=== PATIENT | female | born 1985 | race Asian ===

== ENCOUNTER 2016-07-09 22:39 | Emergency (ER) | payer OTHER ==
[2016-07-09 22:50] VITALS: BP 135/85; PULSE 75; RESP 20; TEMP 97.9; O2SAT 94
[2016-07-09] MEDS ORDERED: IBUPROFEN 200 MG TAB PO ONE (22:52)
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
== END 2016-07-09 23:46 | disposition home or self-care (01) ==
DX: S40.012A Contusion of left shoulder, initial encounter (principal); V49.50XA Passenger injured in collision with unspecified motor vehicles in traffic accident, initial encounter; Y92.410 Unspecified street and highway as the place of occurrence of the external cause; Y93.89 Activity, other specified

== ENCOUNTER 2017-08-18 13:02 | Emergency (ER) | payer MEDICAID, OTHER ==
[2017-08-18] MEDS ORDERED: LET GEL TOPICAL 1 EA SYR TP ONE ×2 (13:36→13:37)
[2017-08-18] MEDS ORDERED: AMOXICILLIN/CLAVULANATE POT 875/125 MG TAB PO ONE (14:36)
[2017-08-18] MEDS ORDERED: TDAP ADULT 0.5 ML INJ (BOOSTRIX) IM ONE (14:36)
--- NOTE | 2017-08-18 14:37 | EDPHY ---
General Time Seen by Provider: 08/18/17 13:54 Narrative: CHIEF COMPLAINT: Toe injury, laceration HISTORY OF PRESENT ILLNESS: Patient complains of right toe pain after injury last night. This happened around 4:30 p.m.. She was walking in her home when she "hit my toe on my refrigerator." Sudden onset of pain in the right little toe with a laceration just below. No numbness or tingling. No radiating pain. Minimal at rest. 6/ 10 when she bears weight or ambulates. She presents today as it has not improved. She has iced it. No other associated complaints or modifying factors. REVIEW OF SYSTEMS: Ten systems reviewed and are negative unless otherwise noted in the HPI PCP: Dr. Lucia Newton SPECIALISTS: None PAST MEDICAL HISTORY: None PAST SURGICAL HISTORY: No surgical history SOCIAL HISTORY: Never smoker. Lives independently with her spouse and child FAMILY HISTORY: Noncontributory EXAMINATION General Appearance: Alert, no distress Head: normocephalic, atraumatic Cardiovascular: Regular rate. Brisk cap refill on the affected right toe. Good signs of perfusion to the foot with symmetric DP and PT pulses. Neurological: A&O, nonfocal, antalgic but steady gait. Strength is symmetric in the great toes Skin: Warm and dry, no rash. 1 cm laceration just below the right 5th toe at the MTP joint. No distraction of the wound border at rest. No pulsatile bleeding. No foreign body. Extremities: Tenderness of the right 5th toe over the proximal phalanx. There is laceration below this. Range of motion of the ankles intact. There is no pain in the midfoot. Neurovascular intact Psychiatric: Mood and affect normal MDM: 2:35 p.m. Blunt trauma to the right toe with superficial laceration to the plantar surface the base of the MTP joint of the 5th toe. Normal x-ray. This is a delayed presentation by 15 hr. This is a minimal laceration, less than 1 cm. I do not feel she would benefit from laceration closure primarily at this time. We will irrigate the wound, dress the wound and treat her with antibiotic prophylaxis. She will be placed in a postoperative shoe. She is comfortable this plan and discharged home stable condition. ED precautions for worsening pain, numbness, tingling, weakness, redness, warmth or fever. SUPERVISION: This patient was independently evaluated without direct involvement of or examination by the attending physician. - Diagnostics Imaging Results: Imaging Impressions Toe X-Ray 08/18/17 13:43 Impression: Negative for fracture or radiopaque foreign body. - History Smoking Status: Never smoked - Objective Vital Signs: Initial Vital Signs Temperature (C) 98.4 F 08/18/17 13:09 Heart Rate 66 08/18/17 13:09 Respiratory Rate 16 08/18/17 13:09 Blood Pressure 113/74 08/18/17 13:09 O2 Sat (%) 98 08/18/17 13:09 O2 Delivery Mode Room Air Allergies/Adverse Reactions: calcium Allergy (Verified 08/18/17 13:09) iron Allergy (Verified 08/18/17 13:09) Home Medications: Medication Instructions Recorded Amoxicillin/Clavulanate Pot 875 mg PO BID #14 tab 08/18/17 [Augmentin 875 MG TAB (*)] Medications Given: Discontinued Medications Amoxicillin/Clavulanate Potassium (Augmentin 875mg) 875 mg PO EDNOW ONE PRN Reason: Protocol Stop: 08/18/17 14:37 Last Admin: 08/18/17 14:53 Dose: 875 mg Diphtheria/Tetanus/Acell Pertussis (Boostrix) 0.5 ml IM .ONCE ONE Stop: 08/18/17 14:37 Last Admin: 08/18/17 14:54 Dose: 0.5 ml Tetracaine/Epinephrine/Lidocaine (Let Gel Topical) 1 ea TP EDNOW ONE Stop: 08/18/17 13:38 Last Admin: 08/18/17 13:40 Dose: 1 ea Departure - Departure Disposition: Home, Routine, Self-Care Clinical Impression: Contusion of toe, right Qualifiers: Encounter type: initial encounter Toe: lesser toe Damage to nail status: without damage Qualified Code(s): S90.121A - Contusion of right lesser toe(s) without damage to nail, initial encounter Toe laceration Qualifiers: Encounter type: initial encounter Toe: lesser toe Damage to nail status: without damage Foreign body presence: without foreign body Laterality: right Qualified Code(s): S91.114A - Laceration without foreign body of right lesser toe(s) without damage to nail, initial encounter Condition: Good Instructions: Laceration Without Closure (ED), Crush Injury (ED) Additional Instructions: 1. Antibiotics as prescribed to completion 2. Ice and elevation often 3. Follow up with primary care physician and Orthopedics for definitive care of the toe injury 4. Return here in 72 hr for re-evaluation of the wound and for possible consideration of delayed closure. Your laceration may not require suture repair at that time 5. Ibuprofen 400 mg every 6-8 hours as needed for pain Referrals: Lucia Newton PA [Primary Care Provider] - As per Instructions Stand Alone Forms: Work Excuse Prescriptions: Amoxicillin/Clavulanate Pot [Augmentin 875 MG TAB (*)] 875 mg PO BID #14 tab
[2017-08-18 15:11] VITALS: BP 110/70
== END 2017-08-18 15:08 | disposition home or self-care (01) ==
DX: S91.114A Laceration without foreign body of right lesser toe(s) without damage to nail, initial encounter (principal); Z23 Encounter for immunization; W22.8XXA Striking against or struck by other objects, initial encounter; Y92.009 Unspecified place in unspecified non-institutional (private) residence as the place of occurrence of the external cause; Y99.8 Other external cause status; Y93.01 Activity, walking, marching and hiking

== ENCOUNTER → 2017-08-22 | Outpatient (CLI) | payer MEDICAID | LOC: FLAB 10:38 → FIMAGING 10:38 → EDSTATUS 11:02 | PROVIDERS: ATTEND Physician Assistant | DX: O26.899 Other specified pregnancy related conditions, unspecified trimester (principal) ==

== ENCOUNTER 2017-08-25 18:07 | Emergency (ER) | payer MEDICAID ==
[2017-08-25] MEDS ORDERED: NS 1,000 ML IV ONE (18:23)
--- NOTE | 2017-08-25 18:26 | EDPHY ---
HPI/HX/ROS/PE/MDM Narrative: CHIEF COMPLAINT: Vaginal bleeding for three days HISTORY OF PRESENT ILLNESS: This patient is a healthy 32 year old female who is six weeks complaining of four-five days of vaginal bleeding. She was seen at [facility] on 08/22/17, for vaginal bleeding and had a positive test. Ultrasound was performed at that time the patient is scheduled for followup on . Today, she noted larger clots present when she goes to the restroom. She endorses dizziness and mild pain in her abdomen. She not felt febrile. She denies any prior miscarriage or ectopic pregnancies. No known history of infection. She has not been taking control. No fever, chills, chest pain , shortness of breath, palpitations, vomiting, diarrhea, urinary complaints, headache. Patient's records were reviewed. 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 There was a small subchorionic hemorrhage noted that time and the patient had only a small rim of endometrium around the yolk sac. REVIEW OF SYSTEMS: Aside from elements discussed in the HPI, a comprehensive 10-point review of systems was reviewed and is negative. PAST MEDICAL HISTORY: . Patient is primarily Tuvaluan speaking. SOCIAL HISTORY: . and daughter at bedside. Employed. Lives in [place]. VITAL SIGNS: Reviewed by me GENERAL: Well-developed, well-nourished, resting comfortably in no respiratory distress. HEENT: Atraumatic. Eyes: No icterus, no injection. Mouth: moist mucous membranes. No erythema or lesions. Neck: supple with no adenopathy. LUNGS: Clear to auscultation bilaterally, no wheezes, rhonchi or rales. CARDIAC: Regular rate and rhythm, no rubs, murmurs or gallops. ABDOMEN: RLQ and suprapubic discomfort. Soft, nondistended, bowel sounds normal. Scant vaginal bleeding at this time. BACK: No CVA tenderness. EXTREMITIES: No trauma. No edema. Range of motion is normal throughout. NEURO: Alert and oriented, grossly nonfocal. SKIN: Warm and dry, no rash. PSYCHIATRIC: Normal mentation, no agitation. Portions of this note were transcribed by a medical unit secretary. I personally performed a history, physical exam, medical decision making, and confirmed accuracy of information the transcribed note. ED Course: 32 y/o female presents with five day history of vaginal bleeding. Patient has RLQ and suprapubic tenderness on exam. Reviewed prior medical records including recent obstetrics ultrasound 08/22/17. Result: Intrauterine gestational sac in the right horn of the uterus near the fundus region corresponding to estimated gestational age of 5 weeks, 6 days with a yolk sac identified. No pole noted at this time. IV established. Plan for labs including CBC, chemistries, BHCG, ABO/Rh type, UA. Plan for repeat obstetrics ultrasound. Plan to administer 1L IV NS. 19:[address] Quick, radiologist. 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 pole present. HR 114. Only 5mm myometrium around . 20:30 Relayed results to patient via [employer] lube attendant on the phone. Discussed that the patient is at higher risk of having a miscarriage due to her bicornate uterus. Discussed the importance of followup throughout the and return to the emergency department for increased bleeding or pain. Also discussed possibility that this may be interstitial as there is such only small amount of myometrium seen surrounding the . Attempted to reach on-call physician for [facility]. No answer after several tries. Plan to consult with MASON FOREMAN/SUPERINTENDANT. 20:[address] Cunningham, [employer] FOREMAN/SUPERINTENDANT. Discussed the ultrasound findings at length. Discussed the fact that the patient was no longer having vaginal bleeding. Dr. Cunningham will see the patient tomorrow without fail in her office. Consult patient and again regarding importance of follow-up. They report that they understand and will follow up tomorrow. Discussed reasons to return to the emergency department including increasing pain, increasing vaginal bleeding, lightheadedness, dizziness, fainting, fever, or other concerns. Per the patient and the , they were not informed of a prior bicornate uterus during her prior . MDM: Differential diagnosis of the patient's vaginal bleeding includes dysfunctional uterine bleeding, threatened miscarriage, spontaneous miscarriage, in the endometrium, ectopic ,ovarian cysts, uterine fibroids, uterine cancer, cervical cancer, and infection. - Data Points Imaging Results: US: Impression: 1. Single viable intrauterine gestation, with size consistent with LMP dates. 2. FHR = 114 BPM. 3. No subchorionic hemorrhage. 4. Bicornuate uterus, with a gestational sac in the right endometrial canal near the fundus, with only 4.4 mm of surrounding myometrium on the margin and, therefore, a cornual/ interstitial ectopic cannot be entirely excluded. Close clinical follow up is recommended. 5. Recommend follow-up anatomy scan between 19 and 20 weeks gestation. 6. Consider highway engineer consult. Findings and recommendations discussed with Emergency Department physician, Anita Toribio M.D., at 1953 hours, on August 25, 2017. Final report concurs with initial preliminary interpretation. Dictated By: Herbert Quick Imaging: Discussed imaging studies w/ teacher physically impaired Radiologist Laboratory Results: Laboratory Results 08/25/17 18:40 08/25/17 18:40 Medications Given: Discontinued Medications Sodium Chloride (Ns) 1,000 mls @ 0 mls/hr IV ONCE ONE; Wide Open PRN Reason: Protocol Stop: 08/25/17 18:24 Last Admin: 08/25/17 18:42 Dose: 1,000 mls General Time Seen by Provider: 08/25/17 18:22 Initial Vital Signs: Initial Vital Signs Temperature (C) 37.2 C 08/25/17 18:15 Heart Rate 78 08/25/17 18:15 Respiratory Rate 16 08/25/17 18:15 Blood Pressure 115/66 08/25/17 18:15 O2 Sat (%) 98 08/25/17 18:15 O2 Delivery Mode Room Air Allergies/Adverse Reactions: calcium Allergy (Verified 08/25/17 18:14) iron Allergy (Verified 08/25/17 18:14) Departure - Departure Disposition: Home, Routine, Self-Care Clinical Impression: Threatened miscarriage in early Condition: Good Instructions: Threatened Miscarriage (ED) Additional Instructions: 1. Follow up with Dr. Cunningham's office tomorrow without fail. Call first thing in the morning for an appointment. Be sure the office knows that the emergency physician spoke to Dr. Cunningham and they want you to be seen tomorrow. 2. Return to the emergency department immediately for fainting, severe pain, vomiting, fever, or other worsening of condition. Referrals: MEDINA CARBAJAL [Primary Care Provider] - As per Instructions Luanne Cunningham DO [Doctor of Osteopathy] - As per Instructions Report Scribed for: Anita Toribio Report Scribed by: Jewell Oneil Date of Report: 08/25/17 Time of Report: 18:23
[2017-08-25 18:56] LABS: PLATELET COUNT 169 10^3/uL (150-400)
[2017-08-25 21:29] VITALS: BP 99/77
== END 2017-08-25 22:02 | disposition home or self-care (01) ==
DX: O20.0 Threatened abortion (principal); E86.9 Volume depletion, unspecified; Z3A.01 Less than 8 weeks gestation of pregnancy

== ENCOUNTER 2018-02-24 04:33 | Observation (INO) | payer MEDICAID ==
[2018-02-24] MEDS ORDERED: LR 500 ML IV ONE (05:30)
[2018-02-24 05:51] LABS: PLATELET COUNT 170 10^3/uL (150-400)
[2018-02-24] MEDS ORDERED: LR 1,000 ML IV SCH (06:00)
[2018-02-24] MEDS: NIFEdipine 10 MG CAP PO PRN ×3 (07:24→11:54)
[2018-02-24] MEDS ORDERED: BETAMETHASONE IM SYRINGE IM ONE (07:30)
[2018-02-24] MEDS: fentaNYL 100 MCG/2 ML INJ IVP PRN ×2 (07:48→13:20)
--- NOTE | 2018-02-24 13:36 | GHP ---
DATE OF ADMISSION: 02/24/2018 ADMITTING DIAGNOSES: 1. Intrauterine at 32 weeks, 3 days. 2. Abdominal pain. 3. Nausea and vomiting. 4. Dysuria. HISTORY OF PRESENT ILLNESS: The patient is a 32-year-old, 2, para 1-0-0 -1 at 32 weeks and 3 days with an estimated due date of 04/18/2017 by last menstrual period, 07/12/2017, and consistent with ultrasound done at 6 weeks. The patient presents with complaints of lower abdominal pain, specifically on the right side starting at midnight, as well as back pain. The patient's admitted to having intercourse around midnight. The pain is associated with nausea and vomiting. The patient states the pain in her abdomen is a 10/10 , and does feel like labor pains. She also notes pain, burning upon urination. Denies any fevers or chills or history of kidney infection. Patient states good movement noted. Notes a brownish, red mucousy discharge. The patient has good care at [facility] and presented in her first trimester at 7 weeks. is complicated by 1st trimester bleeding, as well as bleeding at 15 weeks. Anatomy scan was normal, posterior placenta with no previa noted and estimated weight 69 percentile. The patient develop anemia of , and is tolerating iron. The patient received the flu shot during this . GBS status is unknown at this time. PAST OB HISTORY: In March 2015, she had a viable female weighing 8 pounds born via vacuum-assisted vaginal delivery at 40 weeks. The patient was induced and did have an epidural. PAST MILK ROUTE DELIVERER HISTORY: Age of menarche 13. Cycles are every 28 days for 4 days. LMP 06/26/2017. Patient denies a history of abnormal Pap smears or any exposure to STDs. ER reported bicornuate uterus, granulator operator in our office states more likely arcuate versus septate. CURRENT MEDICATIONS: Include vitamins, iron. ALLERGIES: No known drug allergies. PAST MEDICAL HISTORY: Frequent headaches. SURGICAL HISTORY: Patient denies. PAST FAMILY HISTORY: Father and mother, hypertension. Mother, hypothyroidism. SOCIAL HISTORY: The patient is and lives with her and their daughter. She denies any alcohol, tobacco, or illicit drug use currently. REVIEW OF SYSTEMS: Ten point review of systems negative. Pertinent positives noted in HPI. LABS: Today: White count 10.66. H and H, 11.7 and 35, platelets 170. BMP revealed creatinine 0.5, AST/ALT 17/27. UA showed 2+ blood, 3+ leuk esterase, 1 + bacteria, 50 to 182 white blood cells, and was sent for culture. LABS: The patient is Rh positive. Antibody negative. HIV negative. Hepatitis B surface antigen negative. RPR nonreactive. Rubella immune. Innatal screen negative. Single AFP negative. One-hour Glucola 94. H and H 3rd trimester 11.5, 35.1. PHYSICAL EXAMINATION: VITAL SIGNS: Stable. The patient is afebrile with a temperature of 37.2, heart rate 84, respirations 18, blood pressure 88/54. GENERAL: The patient is a well-nourished, well-developed female. Alert and oriented x3 in mild distress secondary to abdominal pain. NEURO: Grossly intact. SKIN: Warm and dry without rash. CARDIOVASCULAR: Regular rate and rhythm. LUNGS: Clear to auscultation bilaterally. ABDOMEN: Gravid, soft. There was some mild to moderate tenderness in the right lower quadrant. Negative CVA tenderness. PELVIC EXAM: On admission was noted to be 1 cm, 50% effaced, -2 station with brownish mucousy discharge. On repeat exam 4 hours later, there was no cervical change noted. EXTREMITIES: Normal to inspection without calf tenderness or edema. heart tones are Category 1 tracing, with a baseline 130 beats per minute. Positive accelerations. No decelerations. Moderate variability. On toco, initially she was bowen about every 7 to 10 minutes and then after IV fluid bolus, they spaced out. No longer picking them up on the monitor. Nurses palpate very mild contractions. ASSESSMENT/PLAN: Patient is a 32-year-old 2, para 1-0-0-1 at 32 weeks and 3/7 weeks with abdominal pain, nausea, vomiting, and dysuria. PLAN: 1. Admit to Labor and Delivery for observation. 2. Rule out labor: fibronectin was not obtained secondary to the bloody mucousy discharge and recent intercourse. Ultrasound was done that revealed a cervical length of 2.8 cm transvaginally with funneling. The patient was given a dose of steroids at 0715 this morning. Will repeat the 2nd dose of steroids for lung maturity in the morning 02/25. Will give Procardia initial dose 20 mg and then 10 mg q6 for contractions, so that steroids are able to be given 24 hours apart. Will continue to closely observe. 3. Labs all normal, except for UA which was sent for culture. 4. heart tones category I tracing. /[id number]/MODL MTDD
[2018-02-24] MEDS: NIFEdipine 10 MG CAP PO SCH ×2 (16:20→18:02)
[2018-02-24] MEDS ORDERED: ONDANSETRON DISINTEGRATING 4 MG TAB PO PRN (21:03)
[2018-02-25] MEDS ORDERED: BETAMETHASONE IM SYRINGE IM ONE (07:30)
--- NOTE | 2018-02-25 12:04 | OBPROG ---
Labor Progress Note Assessment/Plan: Assessment: IUP 32 37 weeks abdominal pain resolved status reassuring urine culture pending s/p betamethasone x 2 for contractions and shorter cervix 02/25/18 12:01 Subjective/Intrapartum Course: 02/25/18 12:02 patient is doing well. abdominal pain and cramping has resolved. good movement. denies loss of fluid or vaginal bleeding. denies headache and changes in vision. denies nausea or vomiting. ready to go home. next appointment scheduled a week from friday. reviewed precautions and kick counts. ready to go home. Objective: 02/24/18 05:30 02/24/18 05:30 Total Bilirubin < 0.1 mg/dL (0.1-1.4) L 02/24/18 05:30 AST 17 IU/L (14-46) 02/24/18 05:30 ALT 27 IU/L (9-52) 02/24/18 05:30 - Physical Exam General Appearance: WD/WN, alert, no apparent distress Respiratory: chest non-tender, lungs clear, respiratory distress Cardiac/Chest: normal peripheral pulses, regular rate, rhythm Abdomen: normal bowel sounds, non-tender, other (gravid non tender) Extremities: normal range of motion, non-tender, normal inspection, normal capillary refill Skin: normal color, warm/dry Neuro/Psych: no motor/sensory deficits, alert, normal mood/affect, oriented x 3 Oxytocin Orders Assessment - Pre-Induction/Augmentation Assessment Gestational Age: 32 week(s) and 3 day(s) ICD10 Worksheet Patient Problems: Problems Problem Status Onset Subchorionic hemorrhage Acute Vaginal bleeding before 22 weeks gestation Acute
== END 2018-02-25 13:05 | disposition home or self-care (01) ==
LOC: FLD 04:33
PROVIDERS: ADMIT Obstetrics & Gynecology; ATTEND Obstetrics & Gynecology
DX: Z03.79 Encounter for other suspected maternal and fetal conditions ruled out (principal); R10.30 Lower abdominal pain, unspecified; R11.2 Nausea with vomiting, unspecified; R30.0 Dysuria; Z3A.32 32 weeks gestation of pregnancy
CPT/HCPCS: 59025; 76815; G0378; J0702; J3010

== ENCOUNTER 2018-02-28 00:50 | Inpatient (IN) | payer MEDICAID ==
[2018-02-28] MEDS ORDERED: AMMONIA AROMATIC 1 EACH AMP IH ONE (01:23)
[2018-02-28] MEDS ORDERED: OLIVE OIL 118 ML BTL ONE (01:23)
[2018-02-28] MEDS ORDERED: LIDOCAINE 1% 300 MG/30 ML SDV ONE (01:23)
[2018-02-28] MEDS ORDERED: MISOPROSTOL 200 MCG TAB ONE (01:23)
[2018-02-28] MEDS ORDERED: OXYTOCIN 10 UNIT/ML VIAL ONE (01:23)
[2018-02-28] MEDS ORDERED: TERBUTALINE SULFATE 1 MG/ML VIAL ONE (01:23)
[2018-02-28] MEDS ORDERED: AZITHROMYCIN 250 MG TAB PO ONE (01:24)
[2018-02-28] MEDS ORDERED: LR 1,000 ML IV SCH (01:30)
[2018-02-28] MEDS ORDERED: ceFAZolin 2 GM/DEXTROSE 100 ML IV ONE (02:06)
[2018-02-28] MEDS ORDERED: AZITHROMYCIN IV 500 MG in NS 250 ML IV ONE (02:07)
[2018-02-28 02:09] LABS: PLATELET COUNT 178 10^3/uL (150-400)
[2018-02-28] MEDS ORDERED: PROPOFOL/EMULSION 500 MG/50 ML BOTTLE IV ONE (02:22)
[2018-02-28] MEDS ORDERED: ONDANSETRON 4 MG/2 ML VIAL ONE (02:23)
[2018-02-28] MEDS ORDERED: fentaNYL 250 MCG/5 ML INJ ONE (02:27)
[2018-02-28] MEDS ORDERED: DEXAMETHASONE 4 MG/ML VIAL IVP PRN (03:02)
[2018-02-28] MEDS ORDERED: ALBUTEROL 3 ML DEYVIAL IH PRN (03:02)
[2018-02-28] MEDS ORDERED: NALOXONE HCL 0.4 MG/ML INJ IVP PRN ×2 (03:02→04:35)
[2018-02-28] MEDS ORDERED: LR 500 ML IV PRN (03:02)
[2018-02-28] MEDS ORDERED: MEPERIDINE 25 MG/0.5 ML AMP IVP PRN (03:02)
[2018-02-28] MEDS ORDERED: PROMETHAZINE HCL 25 MG/ML INJ IVP PRN (03:02)
[2018-02-28] MEDS ORDERED: fentaNYL 100 MCG/2 ML INJ IVP PRN (03:02)
--- NOTE | 2018-02-28 03:08 | PDANEPAE ---
ANE History of Present Illness 32 year old woman for emergency for prolapsed cord. ANE Past Medical History - Cardiovascular History Hx Hypertension: No Hx Arrhythmias: No Hx Chest Pain: No Hx Coronary Artery / Peripheral Vascular Disease: No Hx CHF / Valvular Disease: No Hx Palpitations: No - Pulmonary History Hx COPD: No Hx Recent Upper Respiratory Infection: No Hx Oxygen in Use at Home: No Hx Sleep Apnea: No - Endocrine History Hx Diabetes: No - Chronic Pain History Chronic Pain: No ANE Review of Systems Review of systems is: negative Review of Systems: ANE Patient History - Allergies Allergies/Adverse Reactions: calcium Allergy (Mild, Verified 10/26/17 10:25) GI iron Allergy (Mild, Verified 10/26/17 10:25) GI - Home Medications Home Medications: NK [No Known Home Meds] 10/26/17 [Last Taken Unknown] - Smoking Hx Smoking Status: Never smoked ANE Labs/Vital Signs - Labs Result Diagrams: 02/28/18 01:50 ANE Physical Exam - Airway Neck exam: FROM Mallampati Score: Class 2 Mouth exam: normal dental/mouth exam - Pulmonary Pulmonary: no respiratory distress - Cardiovascular Cardiovascular: regular rate and rhythym - ASA Status ASA Status: I, E ANE Anesthesia Plan Anesthesia Plan: general endotracheal anesthesia
[2018-02-28] MEDS ORDERED: fentaNYL 100 MCG/2 ML INJ ONE (03:58)
--- NOTE | 2018-02-28 04:00 | POSTANESTH ---
Post Anesthetic Evaluation Cardiovascular Status: Normal, Stable Respiratory Status: Normal, Stable Level of Consciousness/Mental Status: Can Participate in Eval Pain Control: Adequate, Prn Tx Ordered Nausea/Vomiting Control: Adequate, Prn Tx Ordered Complications Possibly Related to Anesthesia: None Noted
[2018-02-28] MEDS ORDERED: BISACODYL 10 MG SUPP PR PRN ×2 (04:07→04:37)
[2018-02-28] MEDS ORDERED: POLYETHYLENE GLYCOL 3350 17 GM PKT PO PRN ×2 (04:07→04:37)
[2018-02-28] MEDS ORDERED: LACTULOSE 20 GM/30 ML UDCUP PO PRN ×2 (04:07→04:37)
[2018-02-28] MEDS ORDERED: MAGNESIUM HYDROXIDE 30 ML UDCUP PO PRN ×2 (04:07→04:37)
--- NOTE | 2018-02-28 04:13 | OBDEL ---
Info Type: Primary Presentation at Delivery: Transverse Lie L&D Analgesia/Anesthesia Type: General GBS+: No (unknown) Intrapartum Medications: Discontinued Medications Generic Name Dose Route Start Last Admin Trade Name Ramanaq PRN Reason Stop Dose Admin Azithromycin 1,000 mg 02/28/18 01:24 02/28/18 03:12 Zithromax PO 02/28/18 01:25 Not Given ONCE ONE Protocol Fentanyl 25 - 100 mcg 02/28/18 03:02 02/28/18 04:00 Sublimaze IVP 02/28/18 04:02 50 mcg Q5M PRN Administration PACU, IMMEDIATE Pain control Azithromycin 500 mg/ Sodium 255 mls @ 255 mls/hr 02/28/18 02:07 02/28/18 02: 16 Chloride IV 02/28/18 03:06 255 mls ONCE ONE Administration Protocol Cefazolin Sodium/Dextrose 100 mls @ 200 mls/hr 02/28/18 02:06 02/28/18 02:15 Ancef IV 02/28/18 02:35 100 mls ONCALL ONE Administration Protocol Vaginal Delivery - Labor and Delivery Onset of Contractions Date: 02/27/18 Onset of Contractions Time: 20:00 Cord Gases: Cord Gases Cord Blood PCO2 69.6 mmHg (37-60) H 02/28/18 02:50 Cord Base Excess -5.0 mEq/L (-13.6--3.2) 02/28/18 02:50 Cord ABG pH 7.18 (7.10-7.37) 02/28/18 02:50 Cord VBG pH 7.29 (7.20-7.42) 02/28/18 02:50 Operative Report - Delivery Pre-op Diagnoses: IUP at 33 wks, PPROM, transverse lie, prolapsed cord. Post-op Diagnoses: same History of Prior Section: No Number of Prior Sections: 0 Nulliparous Prior to Delivery: No Indications for Prior Section: Other (Specify) (n/a) Indications for Current Section: Cord Prolapse, Other (Specify) (PPROM, ) Procedure: Emergent, Low Transverse, Other (Specify) Surgeon: Debi Saleem Global Project Manager: Brie Gooden Anesthesiologist: Elenita Garcia Findings: cord prolapse and Tamiko Pepper RN , after it was first identified - stayed with hands in vagina protecting the cord from compression until delivery. Uterus with slightly irreg fundus with question of arcuate shape. o/w normal ovaries/tubes. delivered from transverse position and head rotated from left lower quadrant to midline, then fundal pressure applied and head delivered without trauma. No nuchal cord but wad of cord delivery after baby. normal double layer closure. no evidence of RPOCs, good uterine tone right after delivery. 1 min of delayed cord clamp, clear fluid upon entry in amniotic cavity Specimen(s)/Path: Placenta IV Fluid (ml): 2,600 EBL: 1000 Cord Gases: Cord Gases Cord Blood PCO2 69.6 mmHg (37-60) H 02/28/18 02:50 Cord Base Excess -5.0 mEq/L (-13.6--3.2) 02/28/18 02:50 Cord ABG pH 7.18 (7.10-7.37) 02/28/18 02:50 Cord VBG pH 7.29 (7.20-7.42) 02/28/18 02:50 Data LEENA: 04/18/18 Gestational Age: 33 week(s) and 0 day(s) Nation Delivery Date: 02/28/18 Delivery Time: 02:50 Sex of Infant: Male Score (1 Min): 8 Score (5 Min): 9 ICD10 Worksheet Patient Problems: Problems Problem Status Onset S/P primary low transverse Acute Umbilical cord prolapse Acute premature rupture of membranes Acute
[2018-02-28] MEDS ORDERED: OXYTOCIN/RINGERS LACTATE 1,000 ML IV SCH (04:30)
[2018-02-28] MEDS: KETOROLAC 30 MG/1 ML SDV IVP SCH ×4 (04:32→22:23)
--- NOTE | 2018-02-28 04:33 | POSTOPPROG ---
Post Op Note Date of Operation: 02/28/18 Surgeon: Debi Saleem Waste Examiner: Brie Gooden SA Anesthesiologist: Elenita Garcia MD Anesthesia: GET(General Endotracheal) Pre-op Diagnosis: IUP at 33 wks, PPROM, prolapsed cord Post-op Diagnosis: same Indication: PPROM, ctxns, transverse lie, prolapsed cord Procedure: primary LTCS Findings: nl uterus with irreg fundus /arcuate, nl ov/tubes, clear fluid Inf/Abcess present in the surg proc area at time of surgery?: No Depth: Organ Space EBL: 500-1000 Total fluids administered: 2600 Specimen(s): Placenta
[2018-02-28] MEDS ORDERED: morphINE PCA 30 MG/30 ML PCA IV PRN (04:35)
[2018-02-28] MEDS ORDERED: AMPICILLIN SODIUM 2 GM in NS 100 ML IV SCH (06:00)
[2018-02-28] MEDS ORDERED: SENNOSIDES/DOCUSATE SODIUM TAB PO SCH (09:00)
--- NOTE | 2018-02-28 12:00 | OBPP ---
Progress Note Assessment/Plan: Assessment: s/p stat PCS under GA secondary to PPROM and cord prolapse at 33 weeks POD # 0.5 - pt is stable Plan: Continue routine post-op care Will d/c PORTFOLIO STRATEGIST and start oral meds as ordered Advance diet as giancarlo Encourage ambulation UO is good Pt is afebrile H/H in am 1202/28/18 12:03 Subjective/ Course: 02/28/18 12:00 Pt seen and examined. Pain is controlled at this time- s/p Toradol and on Morphine PORTFOLIO STRATEGIST. Pt no longer having nausea. Pt is not OOB yet, giancarlo clears, carroll in place, no flatus. Denies any f/c/v/CP or SOB. Mod lochia. Objective: 02/28/18 01:50 Patient ABO/Rh B POSITIVE 02/28/18 01:50 Temp Pulse Resp BP Pulse Ox 36.3 C 79 26 H 112/68 99 02/28/18 05:30 02/28/18 01:36 02/28/18 05:30 02/28/18 05:30 02/28/18 05:30 Uterine Position/Fundal Height: Umbilicus -1 Uterine Tone: Firm Physical Exam - Physical Exam General Appearance: WD/WN, alert, no apparent distress Respiratory: lungs clear, normal breath sounds Cardiac/Chest: regular rate, rhythm Abdomen: normal bowel sounds, soft, incision (C/D/I with dressing-no shadowing) , dressing (C/D/I), other (appropriate tenderness) Extremities: non-tender, normal inspection (with SCDs in place) Skin: normal color, warm/dry Neuro/Psych: alert, normal mood/affect, oriented x 3
[2018-02-28] MEDS: ACETAMINOPHEN 325 MG TAB PO SCH ×4 (13:36→22:31)
[2018-02-28] MEDS: oxyCODONE IR 5 MG TAB PO PRN ×2 (13:54→18:28)
--- NOTE | 2018-02-28 14:03 | GHP ---
DATE OF ADMISSION: 02/28/2018 HISTORY UPON ADMISSION: The patient is a 32-year-old, G2, P1, at 33 weeks' gestation with an estimated due date of 04/18/2017, who presents early on the morning of 02/28 with complaints of abdominal pains. The patient reports the pains were throughout the day on the , however, increasing in frequency after 8 p.m. on the night of 02/27. The patient was coming to Labor and Delivery for evaluation and reports increased leakage of fluid approximately 0045 when she arrived at the hospital. The patient was admitted on to Labor and Delivery after 1 a.m. and was found to be grossly ruptured with clear fluid. The patient was describing abdominal pains and reporting significant discomfort. However, the patient did not visually look uncomfortable consistent with contractions. The patient had previously been admitted to the hospital on 02/24, at which time she was having contractions, but no signs of labor progress. She had been given betamethasone on the and . The patient was reporting good movement, however, had been breech on an ultrasound on the . An ultrasound was performed on Labor and Delivery to determine the position. There was a moderate amount of amniotic fluid. The baby was in a transverse lie with the head in the left lower quadrant and what appeared to be arm presenting in the pelvis. The heart tones had been showing evidence of cord compression with variable decelerations, approximately every 4-7 minutes. A Betadine sterile vaginal exam was performed , and there was evidence of prolapsed cord in the vagina. There was no obvious presenting part through the cervix other than cord. At the time I discovered the prolapsed cord, I remained giving the cord support and elevating the lower uterine segment. RN, Selene Pepper, put on a sterile glove, and we switched places for her to support the prolapse cord while preparations were being made for section. After the prolapsed cord was identified, there was improvement in the variable decelerations with the pelvic support, but preparations were made quickly to proceed to the operating room for section. With the language barrier for the patient, it was difficult for her to understand the reasoning for , and the patient and her were reassured about the baby's status, but need for emergent surgery for delivery. The risks and benefits were quickly reviewed, and the signed the consent form for the patient. COURSE: The patient has been with [facility] for since the first trimester. She had first trimester bleeding as well as bleeding at 15 weeks. The placenta was posterior with no previa noted. Anatomy ultrasound was normal. was uncomplicated other than anemia. contractions required the admission on 02/24, but the baby did receive a full course of betamethasone. PAST OBSTETRIC HISTORY: In March 2015, a viable female by vacuum-assisted vaginal delivery at 40 weeks. Baby was 8 pounds. The patient had an epidural for that delivery. PAST GRIEVANCE AND APPEALS COORDINATOR HISTORY: No history of abnormal Pap smears or STDs. Question about a bicornuate uterus or arcuate shape on ultrasound. PAST SURGICAL HISTORY: Negative. ALLERGIES: No known drug allergies. CURRENT MEDICATIONS: Only vitamins and iron. PAST MEDICAL HISTORY: Frequent headaches. FAMILY HISTORY: Hypertension. Mother, hypothyroidism. SOCIAL HISTORY: The patient is and lives with her and their daughter. The patient is a nonsmoker and uses no drugs or alcohol. LABS: Maternal blood type O positive with negative antibody screen. RPR nonreactive. HIV negative. Hepatitis B surface antigen negative. Rubella immune, Verify screen was negative. MSAFP was negative. One-hour Glucola normal. Hematocrit with anemia was at 35%. PHYSICAL EXAM: VITAL SIGNS: Upon admission, the patient had normal vital signs and was afebrile. See nursing documentation for full details. GENERAL: The patient is a well-developed, well-nourished [place] female. Alert and oriented. Patient in moderate discomfort with the pelvic exam and persistent hand in the vagina for cord support. LUNGS: Clear to auscultation bilaterally. CARDIOVASCULAR: Regular rate and rhythm. HEART TONES: Monitoring initially revealed heart tones in the 150s with moderate variability and accelerations. There were variable decelerations, some lasting over a minute, but with good recovery. Category 2 tracing after the pelvic exam revealing the prolapsed cord and the ensuing support to relieve pressure on the cord, then there continued to be baseline in the 140s to 150s with moderate variability and accelerations. The variable decelerations were significantly decreased. Continued category 2 tracing, but much more reassuring. Contractions difficult to monitor in this patient, but seemed to correlate with the variable decelerations. PELVIC: Difficult to assess exactly the cervical dilation with a large amount of cord in the vaginal vault. Bloody show noted as well as clear fluid. EXTREMITIES: Nontender with small amount of peripheral edema. ASSESSMENT: A 32-year-old G2, P1 at 33 weeks' gestation with rupture of membranes in a transverse lie with prolapsed cord. GBS status unknown. PLAN: Proceed to section and maintain pelvic exam with support in the lower uterine segment to the prolapsed cord. Anesthesia and Surgical Assistance notified. Preoperative antibiotics of cefazolin and azithromycin given to the patient IV. PEANUT FARMER notified and was informed betamethasone course was given on the and . /[id number]/MODL MTDD
[2018-03-01] MEDS: ACETAMINOPHEN 325 MG TAB PO SCH ×4 (03:02→23:01)
[2018-03-01] MEDS: IBUPROFEN 600 MG TAB PO SCH ×4 (04:55→23:01)
[2018-03-01 05:39] LABS: PLATELET COUNT 159 10^3/uL (150-400)
[2018-03-01] MEDS: oxyCODONE IR 5 MG TAB PO PRN ×4 (09:25→23:01)
[2018-03-01] MEDS: SENNOSIDES/DOCUSATE SODIUM TAB PO SCH ×2 (09:26→20:28)
--- NOTE | 2018-03-01 12:14 | OBPP ---
Progress Note Assessment/Plan: Assessment: POD 1 s/p primary c/s anemia Plan: Doing well, routine care, pain management good, iron daily 03/01/18 12:08 03/01/18 12:19 Subjective/ Course: 02/28/18 12:00 Pt seen and examined. Pain is controlled at this time- s/p Toradol and on Morphine AUDIT OFFICER. Pt no longer having nausea. Pt is not OOB yet, ginacarlo clears, carroll in place, no flatus. Denies any f/c/v/CP or SOB. Mod lochia. 03/01/18 12:23 Pt doing well. Sitting for baby to try to latch. Has been up to walk couple times. Dizzy yesterday but today better. pain controlled with ibu/tyl and oxy 1 q 4 hrs. no nausea/eating well. hydrating ok. bleeding ok. not sure how producing milk will go -- didn't get good milk last time and pain with pumping. Encouraged increased water. Objective: 03/01/18 05:15 Patient ABO/Rh B POSITIVE 02/28/18 01:50 Temp Pulse Resp BP Pulse Ox 36.9 C 83 17 100/66 98 03/01/18 08:05 03/01/18 08:05 03/01/18 08:05 03/01/18 08:05 03/01/18 08:05 Uterine Position/Fundal Height: Umbilicus -1 Uterine Tone: Firm Physical Exam - Physical Exam Abdomen: non-tender (approp post op tenderness), soft, incision (CDI) Extremities: non-tender, pedal edema (mild) Skin: normal color, warm/dry Neuro/Psych: alert, normal mood/affect
[2018-03-01] MEDS: FERROUS SULFATE 140 MG TAB.ER PO SCH (20:27)
[2018-03-02] MEDS: oxyCODONE IR 5 MG TAB PO PRN ×3 (04:58→20:48)
[2018-03-02] MEDS: IBUPROFEN 600 MG TAB PO SCH ×4 (04:58→22:52)
[2018-03-02] MEDS: ACETAMINOPHEN 325 MG TAB PO SCH ×4 (04:58→22:53)
--- NOTE | 2018-03-02 08:07 | OBPP ---
Progress Note Assessment/Plan: Assessment: 32 , POD#2 s/p emergent primary low transverse C/S 2/2 PPROM/ transverse presentation /cord prolapse - doing well postoperatively. Pain well controlled. Pumping. Plan:Continue routine postop cares. Encourage ambulation. Ivette Fajardo MD, [facility] 03/02/18 08:36 Subjective/ Course: 02/28/18 12:00 Pt seen and examined. Pain is controlled at this time- s/p Toradol and on Morphine MILITARY COOK. Pt no longer having nausea. Pt is not OOB yet, giancarlo clears, carroll in place, no flatus. Denies any f/c/v/CP or SOB. Mod lochia. 03/01/18 12:23 Pt doing well. Sitting for baby to try to latch. Has been up to walk couple times. Dizzy yesterday but today better. pain controlled with ibu/tyl and oxy 1 q 4 hrs. no nausea/eating well. hydrating ok. bleeding ok. not sure how producing milk will go -- didn't get good milk last time and pain with pumping. Encouraged increased water. 03/02/18 08:43 Pt doing well. Currently pumping while sitting in bed. Ambulating and voiding without difficulty. + flatus but no BM yet. Pain well controlled with po meds. Baby doing well in NICU. Objective: 03/01/18 05:15 Patient ABO/Rh B POSITIVE 02/28/18 01:50 Temp Pulse Resp BP Pulse Ox 36.9 C 76 16 99/64 L 95 03/02/18 04:45 03/02/18 04:45 03/02/18 04:45 03/02/18 04:45 03/02/18 04:45 gen- pleasant, NAD CV - RRR chest - CTAB abd - soft, + BS, fundus firm at u-1 and NT inc - c/d/i with steri strips ext - BLE - trace edema, no calf tenderness, Tristan's neg Uterine Position/Fundal Height: Umbilicus -1 Uterine Tone: Firm
[2018-03-02] MEDS: FERROUS SULFATE 140 MG TAB.ER PO SCH ×2 (11:03→22:56)
[2018-03-02] MEDS: SENNOSIDES/DOCUSATE SODIUM TAB PO SCH ×2 (11:04→11:25)
[2018-03-03] MEDS: IBUPROFEN 600 MG TAB PO SCH ×3 (05:36→18:12)
[2018-03-03] MEDS: ACETAMINOPHEN 325 MG TAB PO SCH ×3 (05:36→18:11)
[2018-03-03] MEDS: SENNOSIDES/DOCUSATE SODIUM TAB PO SCH (05:52)
--- NOTE | 2018-03-03 10:53 | OBPP ---
Progress Note Assessment/Plan: Assessment: 32 y/o POD #3 a/p stat LTCS secondary to transverse lie and cord prolapse Plan: Pt is stable on iron BID. Pumping to bring in milk supply. Routine POC. D/c to border tomorrow. 03/03/18 10:47 Subjective/ Course: 02/28/18 12:00 Pt seen and examined. Pain is controlled at this time- s/p Toradol and on Morphine HEALTH PROGRAM DIRECTOR. Pt no longer having nausea. Pt is not OOB yet, giancarlo clears, carroll in place, no flatus. Denies any f/c/v/CP or SOB. Mod lochia. 03/01/18 12:23 Pt doing well. Sitting for baby to try to latch. Has been up to walk couple times. Dizzy yesterday but today better. pain controlled with ibu/tyl and oxy 1 q 4 hrs. no nausea/eating well. hydrating ok. bleeding ok. not sure how producing milk will go -- didn't get good milk last time and pain with pumping. Encouraged increased water. 03/02/18 08:43 Pt doing well. Currently pumping while sitting in bed. Ambulating and voiding without difficulty. + flatus but no BM yet. Pain well controlled with po meds. Baby doing well in NICU. 03/03/18 10:45 Pt is feeling better today. She has good pain control with po meds. She is ambulating, voiding well and had + BM today. She is pumping and feeling more breast fulless. Baby is stable in the NICU. She would like to stay as an inpatient until tomorrow. Objective: 03/01/18 05:15 Patient ABO/Rh B POSITIVE 02/28/18 01:50 Temp Pulse Resp BP Pulse Ox 36.7 C 88 16 110/68 94 03/03/18 05:15 03/03/18 05:15 03/03/18 05:15 03/03/18 05:15 03/03/18 05:15 Uterine Position/Fundal Height: Umbilicus -3 Uterine Tone: Firm Physical Exam - Physical Exam General Appearance: WD/WN, alert Neck: non-tender, full range of motion, supple, normal inspection Respiratory: chest non-tender, lungs clear, normal breath sounds Cardiac/Chest: normal peripheral pulses, regular rate, rhythm Abdomen: normal bowel sounds, non-tender, soft, incision (c/d/i) Extremities: normal range of motion, non-tender, normal inspection, normal capillary refill, swelling (tr), Tristan's sign (neg) DTR- Lower Extremities: Knee (R): 2+, Knee (L): 2+, Ankle (R): 2+, Ankle (L): 2+ , Plantar (R): 2+, Plantar (L): 2+ Peripheral Pulses: 2+: carotid (R), carotid (L), femoral (R), femoral (L), dorsalis-pedis (R), dorsalis-pedis (L) Back: Normal inspection Skin: normal color, warm/dry Neuro/Psych: no motor/sensory deficits, alert, normal mood/affect, oriented x 3
[2018-03-03] MEDS: FERROUS SULFATE 140 MG TAB.ER PO SCH (11:57)
[2018-03-03 20:56] VITALS: BP 102/64
[2018-03-04] MEDS: IBUPROFEN 600 MG TAB PO SCH ×3 (00:13→14:37)
[2018-03-04] MEDS: FERROUS SULFATE 140 MG TAB.ER PO SCH ×2 (00:13→14:37)
[2018-03-04] MEDS: ACETAMINOPHEN 325 MG TAB PO SCH ×3 (00:13→14:37)
[2018-03-04] MEDS: SENNOSIDES/DOCUSATE SODIUM TAB PO SCH ×2 (04:47→14:38)
--- NOTE | 2018-03-04 08:34 | OBPP ---
Progress Note Assessment/Plan: Assessment: 1) s/p stat PCS under GA secondary to PPROM, cord prolapse and transverse lie at 33 weeks POD # 4 - pt is stable 2) Anemia - pt is asymptomatic Plan: Plan for d/c today to border-baby in NICU Instructions reviewed with pt and partner Rx given for Ibu, Oxy and iron Cont PNV and colace Pelvic rest and lifting restrictions given Encouraged to cont to pump since milk is coming in RTC in 2 weeks for incision check, 4 weeks for mood check and 6 weeks for pp check 03/04/18 08:35 Subjective/ Course: 02/28/18 12:00 Pt seen and examined. Pain is controlled at this time- s/p Toradol and on Morphine NON DESTRUCTIVE TESTING SPECIALIST. Pt no longer having nausea. Pt is not OOB yet, giancarlo clears, carroll in place, no flatus. Denies any f/c/v/CP or SOB. Mod lochia. 03/01/18 12:23 Pt doing well. Sitting for baby to try to latch. Has been up to walk couple times. Dizzy yesterday but today better. pain controlled with ibu/tyl and oxy 1 q 4 hrs. no nausea/eating well. hydrating ok. bleeding ok. not sure how producing milk will go -- didn't get good milk last time and pain with pumping. Encouraged increased water. 03/02/18 08:43 Pt doing well. Currently pumping while sitting in bed. Ambulating and voiding without difficulty. + flatus but no BM yet. Pain well controlled with po meds. Baby doing well in NICU. 03/03/18 10:45 Pt is feeling better today. She has good pain control with po meds. She is ambulating, voiding well and had + BM today. She is pumping and feeling more breast fulless. Baby is stable in the NICU. She would like to stay as an inpatient until tomorrow. 03/04/18 08:33 Pt seen and examined. Doing well, but notes breasts are pretty tender this morning. Pain is well controlled with po meds. Pt is OOB, giancarlo regular diet, voiding and BM x 1. Mod lochia. Pt denies any f/c/n/v/CP or SOB. Baby boy doing well in NICU. Objective: 03/01/18 05:15 Patient ABO/Rh B POSITIVE 02/28/18 01:50 Temp Pulse Resp BP Pulse Ox 36.4 C 72 16 102/64 97 03/03/18 20:55 03/03/18 20:55 03/03/18 20:55 03/03/18 20:55 03/03/18 20:55 Uterine Position/Fundal Height: Umbilicus -2 Uterine Tone: Firm Physical Exam - Physical Exam General Appearance: WD/WN, alert, no apparent distress Respiratory: lungs clear, normal breath sounds Cardiac/Chest: regular rate, rhythm Abdomen: normal bowel sounds, non-tender, soft, flatus (+), incision (C/D/I with steri strips in place) Extremities: non-tender, normal inspection Skin: normal color, warm/dry Neuro/Psych: alert, normal mood/affect, oriented x 3
--- NOTE | 2018-03-04 08:36 | OBGCSDC ---
General Delivery Information - General Info : 2 Para: 2 Abortions: 0 Type: Primary L&D Analgesia/Anesthesia Type: General Admission Date: 02/28/18 Labs: Patient ABO/Rh B POSITIVE 02/28/18 01:50 Hct 28.6 % (38.0-47.0) L 03/01/18 05:15 - Hospital Course : 02/28/18 12:00 Pt seen and examined. Pain is controlled at this time- s/p Toradol and on Morphine ELECTRICAL CONTINUITY TESTER. Pt no longer having nausea. Pt is not OOB yet, giancarlo clears, carroll in place, no flatus. Denies any f/c/v/CP or SOB. Mod lochia. 03/01/18 12:23 Pt doing well. Sitting for baby to try to latch. Has been up to walk couple times. Dizzy yesterday but today better. pain controlled with ibu/tyl and oxy 1 q 4 hrs. no nausea/eating well. hydrating ok. bleeding ok. not sure how producing milk will go -- didn't get good milk last time and pain with pumping. Encouraged increased water. 03/02/18 08:43 Pt doing well. Currently pumping while sitting in bed. Ambulating and voiding without difficulty. + flatus but no BM yet. Pain well controlled with po meds. Baby doing well in NICU. 03/03/18 10:45 Pt is feeling better today. She has good pain control with po meds. She is ambulating, voiding well and had + BM today. She is pumping and feeling more breast fulless. Baby is stable in the NICU. She would like to stay as an inpatient until tomorrow. 03/04/18 08:33 Pt seen and examined. Doing well, but notes breasts are pretty tender this morning. Pain is well controlled with po meds. Pt is OOB, giancarlo regular diet, voiding and BM x 1. Mod lochia. Pt denies any f/c/n/v/CP or SOB. Baby boy doing well in NICU. - Delivery Providers Surgeon: Debi Saleem Side Seam Tender: Brie Gooden Anesthesiologist: Elenita Garcia - Delivery Number of Prior Sections: 0 Indications for Current Section: Cord Prolapse, Other (Specify) (PPROM, ) Surgical Procedures: Emergent, Low Transverse, Other (Specify) EBL: 1000 Data LEENA: 04/18/18 Gestational Age: 33 week(s) and 4 day(s) Nation Delivery Date: 02/28/18 Delivery Time: 02:50 Sex of : Male [place] Weight (gm): 1776 g Score (1 Min): 8 Score (5 Min): 9 Discharge Information - Discharge Information Condition: Good Instruction/Follow Up: Two Weeks (incision check), Four Weeks (mood check), Six Weeks ( check)
== END 2018-03-04 14:38 | disposition home or self-care (01) | DRG 540 ==
LOC: FLD 00:50 → OBSVTOIN 09:12 → FOB 11:30
PROVIDERS: ADMIT Obstetrics & Gynecology; ATTEND Obstetrics & Gynecology
PROC: 10D00Z1 Extraction of Products of Conception, Low, Open Approach (ICD-10-PCS; principal; 2018-03-01)
DX: O42.013 Preterm premature rupture of membranes, onset of labor within 24 hours of rupture, third trimester (principal); O32.2XX0 Maternal care for transverse and oblique lie, not applicable or unspecified; O69.0XX0 Labor and delivery complicated by prolapse of cord, not applicable or unspecified; O76 Abnormality in fetal heart rate and rhythm complicating labor and delivery; O90.81 Anemia of the puerperium; Z3A.33 33 weeks gestation of pregnancy; Z37.0 Single live birth
CPT/HCPCS: J0456; J0690; J1885; J2270; J2405; J2590; J2704; J3010; J3105; J7613

== ENCOUNTER → 2018-06-03 | Day surgery (SDC) | payer MEDICAID ==
--- NOTE | 2018-06-02 11:26 | GHP ---
[f rep st] PREOP HISTORY AND PHYSICAL DATE OF ADMISSION: 06/01/2018 Planned procedure is 06/03. PLANNED PROCEDURE: Suction dilation and curettage for retained placenta. INDICATIONS: Patient is a 33 yo, 2, para 2-0-0-2, who is 3 months . She had an emergency for prolapsed cord and transverse lie on 02/28/2018. She has had persistent vaginal bleeding since delivery. She presented for an evaluation on 06/01/2018 and a pelvic ultrasound was obtained. Pelvic ultrasound showed uterus measuring 6 x 4 x 6 cm with an endometrium of 1.8 cm, which showed some debris and feeder vessels. Presumptive retained products of conception was made. Recommendations were made to proceed with a suction dilation and curettage for retained products of conception. Risks and benefits were reviewed with the patient and patient will sign consent tomorrow, day of surgery. MEDICAL HISTORY: Significant for headaches. MEDICATIONS: vitamins. SURGICAL HISTORY: Emergency section. ALLERGIES: No known drug allergies. SOCIAL HISTORY: Patient is from [facility]. She denies tobacco, alcohol, or drug use. FAMILY MEDICAL HISTORY: Noncontributory. APPLICATIONS PROJECT MANAGER HISTORY: She is a 2, para 1-0-0-1. In 03/2015, she had a vacuum assisted vaginal delivery at 40 weeks after 3 hours of labor and 02/2018 , she had an emergency low transverse section for cord prolapse and transverse presentation. Postoperative course has been complicated by retained products of conception. Patient denies any history of any abnormal Pap smears or sexually transmitted diseases. 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 PHYSICAL EXAMINATION: VITAL SIGNS: Stable. GENERAL APPEARANCE: Alert and oriented x3. MUSCULOSKELETAL: Grossly intact. PSYCH: Appropriate affect. NEURO: Grossly intact. HEART: Regular, regular. LUNGS: Clear to auscultation bilaterally. ABDOMEN: Soft, nondistended, nontender. EXTREMITIES : Reveal no calf tenderness or edema. PELVIC: Deferred. Pelvic ultrasound findings above with a possible arcuate uterus. The patient's blood type is B positive. ASSESSMENT AND PLAN: A 33 year old 2, para 1-1-0-2, who is 3 months with persistent bleeding. Ultrasound showed retained products of conception and placenta. She will undergo a suction dilation and curettage under ultrasound guidance. Risks and benefits were reviewed with the patient, and she will sign consent the morning of surgery. /[id number]/MODL MTDD
[~2018-06-03] MED LIST: CEFAZOLIN 2 GM/DEXTROSE/100 ML BAG IV ONE; MIDAZOLAM 2 MG/2 ML VIAL ONE; PROPOFOL/EMULSION 500 MG/50 ML BOTTLE IV ONE; fentaNYL 100 MCG/2 ML INJ ONE
[2018-06-03 10:02] VITALS: BP 131/77
--- NOTE | 2018-06-03 10:48 | PDANEPAE ---
ANE History of Present Illness Retained placenta ANE Past Medical History - Cardiovascular History Hx Hypertension: No Hx Arrhythmias: No Hx Chest Pain: No Hx Coronary Artery / Peripheral Vascular Disease: No Hx CHF / Valvular Disease: No Hx Palpitations: No - Pulmonary History Hx COPD: No Hx Recent Upper Respiratory Infection: No Hx Oxygen in Use at Home: No Hx Sleep Apnea: No - Endocrine History Hx Diabetes: No - Chronic Pain History Chronic Pain: No ANE Review of Systems Review of Systems: ANE Patient History - Allergies Allergies/Adverse Reactions: calcium Allergy (Mild, Verified 10/26/17 10:25) GI iron Allergy (Mild, Verified 10/26/17 10:25) GI - NPO status NPO Since - Liquids (Date): 06/02/18 NPO Since - Liquids (Time): 21:00 NPO Since - Solids (Date): 06/02/18 NPO Since - Solids (Time): 21:00 - Anes Hx Anes Hx: no prior problems - Smoking Hx Smoking Status: Never smoked ANE Labs/Vital Signs - Vital Signs Blood Pressure: 131/77 Heart Rate: 69 Respiratory Rate: 16 O2 Sat (%): 98 ANE Physical Exam - Airway Neck exam: FROM Mallampati Score: Class 2 - Pulmonary Pulmonary: no respiratory distress - Cardiovascular Cardiovascular: regular rate and rhythym - ASA Status ASA Status: II ANE Anesthesia Plan Anesthesia Plan: MAC (vs IV GA)
--- NOTE | 2018-06-03 19:32 | GOP ---
[f rep st] OPERATIVE REPORT DATE OF OPERATION: 06/03/2018 SURGEON: Debi Saleem MD ANESTHESIA: General IV anesthesia. ANESTHESIOLOGIST: Dr. Pineda. PREOPERATIVE DIAGNOSIS: Bleeding after section, possible retained products of conception. POSTOPERATIVE DIAGNOSIS: Bleeding after section, possible retained products of conception. PROCEDURE PERFORMED: Dilatation and curettage. FINDINGS: INDICATIONS: Patient is a 33-year-old, para 1, [place] female who had a section emergently on 02/28/2018, after a prolapsed cord. Patient had the emergent under general endotrachea l anesthesia. Patient had normal bleeding afterwards that spontaneously resolved. The pa tient had onset of bleeding that was moderate to heavy on 05/20, and this has persisted until now. Th e patient was evaluated on 06/01 at [facility] and had an ultrasound that revealed complex t issue in the uterus, less than 2 cm. Patient was stable with a hematocrit of 36%. Patient presents today for D and C risks. Risks and benefits of the surgery discussed with the patient and the consen t form signed. DESCRIPTION OF PROCEDURE: The patient was taken to the operating room where following satisfactory I V general anesthesia, the patient was placed in dorsal lithotomy position. The patient had urinated prior to coming to the operating room. The patient had received IV antibiotics preoperatively and petersen d SCDs on her lower extremities for DVT prophylaxis. The patient was prepped and draped in the usual sterile manner for vaginal procedures. A sterile speculum was placed within the vagina. An atrauma tic grasper was placed on the anterior lip of the cervix and gentle traction applied. The cervix was slowly dilated up to #10.5 Hegar dilator. A #10 suction tip was used on the suction machine, and wi th the first pass of suction, there was a small amount of very soft tissue that appeared consistent w ith tissue. It was not firm or calcified as I might expect if this was retained from the p revious . There was minimal other tissue obtained. Sharp curettage was performed with the medium curette, and there was good uterine cry throughout the cavity. There was a thin endometrium o n ultrasound after the procedure. One last pass with the suction was performed and there was minimal additional blood or tissue. The atraumatic grasper was removed, and there was no bleeding from the cervix. Patient tolerated the procedure well. Patient was cleaned off and taken out of position and then taken to the recovery room in stable condition. SERVICE: Gynecology. /[id number]/MODL
== END ==
LOC: UNDOADMIN 09:04 → FOBOP 09:04 → F1N 09:04 → EDSTATUS 09:45
PROVIDERS: ATTEND Obstetrics & Gynecology
PROC: 10D17ZZ Extraction of Products of Conception, Retained, Via Natural or Artificial Opening (ICD-10-PCS; principal; 2018-06-03)
DX: O73.1 Retained portions of placenta and membranes, without hemorrhage (principal)
CPT/HCPCS: J0690; J2250; J2704; J3010